=== PATIENT | male | born 1960 | race Caucasian/White ===

== ENCOUNTER → 2023-02-13 10:02 | Outpatient (BNVA) | payer BC, SELFPAY | PROVIDERS: PCP Internal Medicine; Visit Provider Psychiatry & Neurology Neurology ==

== ENCOUNTER 2023-03-13 12:45 | Outpatient (RCR) | payer BC, SELFPAY ==
--- NOTE | 2023-03-21 11:05 | MHC.SP.ADU ---
Referring provider: Dr. Tolbert Reason for Referral: Unspecified Dementia; Assess for Cognitive Therapy Type of Treatment: 96009 Standardized Cognitive Performance Testing, per hour Date of Plan of Treatment: 03/13/23 Onset of Symptoms/Illness: 07/11/21 Date Treatment Started: 03/13/23 Medical Diagnosis: Vascular Dementia (RE: Dr. Alejandra JACOB 07/11/21) Primary Speech Language Diagnosis: I69.911 Memory deficit Secondary Speech Language Diagnosis: R41.841 Cognitive communication disorder History Nico Perdomo is a 75 year old man who has been previously diagnosed with Vascular Dementia by his neuropsychologist, Dr. Kenzie Merritt. He is referred by his Neurologist, Dr. Tolbert for cognitive therapy. Per Mr. Perdomo's , Deidre, who accompanied Nico to this appointment, Dr. Tolbert specified a diagnosis of Alzheimer's Dementia, but Deidre is unclear why this is changed from his initial diagnosis of Vascular Dementia. Nico and Deidre report that he has struggled with memory and difficulty with complex tasks for at least three years now. Nico has worked for [employer] for his career and was formerly a assistant store manager trainee in [employer]. He decided to step down from that position due to difficulty he was having with many of the higher order tasks required, and concern about his safety during commuting to [place]. 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 Nico reports that he is managing working and this position without difficulties and that the work is fairly predictable and routine. However he reports he can have episodes where he becomes angry at co-workers if they are not working at an expected level, and he can get frustrated at times when he forgets a detail or draws a blank about a task he is trying to complete. Nico and his reports that he only drives during the day and only routine/well known routes, and he has not had an driving incidents. Deidre reported that Nico has always been very hard working and dedicated to his job and being a provider for his family. She reported that he has no hobbies but then reported that he has previously enjoyed preparing special foods (jams and seasonal meals) as well as being very handy around the house. She reports that these activities have become much harder for him and he is less engaged in his preferred activities. The Leanne's have two adult Daughters and they live in [place]. Medical History: High Blood Pressure Other: Gilbert's Syndrome, HLD. Anxiety, Depression Medication List: Recent Hospitalizations: No Respiratory Needs: Room Air Patient Orientation: Alert & Oriented x 4 Social History: Employment Status: [employer] Employ[employer] Highest level of education obtained: Completed Master's Current Living Situation: Lives with in private home in [place] Assistive Devices in use: Glasses/Contacts Comment: For reading Past Speech Language Therapy: None Reported Speech, Language, Cognition difficulties: Understanding Memory Cognition Comments: Areas of significant weakness with short term memory, working memory, delayed recall, visual processing and visual memory Quality of Life: Fair Patient Stated Goal of Speech-Language Therapy: Assess for Cognitive Therapy Assessment Speech Production: Articulate Clinical Impression: Intact Informal Voice Assessment: Voice Loudness: Normal Mildly Loud Voice Nasal Resonance: Voice Oral Resonance: Normal Voice Phonatory-based Quality: Normal Voice Pitch: Normal Clinical Impression: Intact Tests of Cognition: RBANS Clinical Impression: Impaired Observations: The Repeatable Battery for the Assessment of Neuropsychological Status (RBANS-Update Form A) was used to assess aspects of cognitive memory, language and attention skills. The RBANS is considered a screening battery for adult cognitive function, and is repeatable for the purpose of evaluating any changes in function. Composite domains assessed in this evaluation are: Immediate Memory; Visuospatial/Constructional; Language; Attention; and Delayed Memory. Domain index scores and percentile ranking are the following: Immediate Memory: Index Score: 49, %ile: <.1 Visuospatial/Constructional: Index Score: 50, %ile <.1 Language: Index Score: 87, %ile 20 Attention: Index Score: 40, %ile <.1 Delayed Memory: Index score 60, %ile: .4 TOTAL TEST: Index Score: 50, 5ile: <.1 Comment: Nico presents with a relative strength in his language skills, with good word recall and good semantic fluency noted. He presents with very significant weakness in the area of visual processing and visual memory, e.g. on this evaluation on a figure copying task, he produced a disorganized assemblage of shapes in lieu of the image depicted, was unable to perform a coding task and had extreme difficulty with visually processing other tasks. He had significant difficulty with immediate recall of verbal information, either in the form of a discreet list, a narrative or number sequences. As immediate recall was challenging, remote recall of details and information was also significantly impaired. Impressions and Recommendations Summary: Nico presents with a moderate to severe impairment of memory skills associated with immediate recall of information, visual processing and visual memory, and remote or delayed recall of information.? Nico will have great difficulty recalling new information, details, brief data presented auditorily.? This may be most evident when verbal directions are given, or phone numbers are recited for recall, or specific dates or other information is briefly given and not written down.? However, this level of difficulty with short term memory can additionally affect general comprehension in daily activities such as difficulty recalling details from conversations, repeating conversational information, and misplacing needed items.? This also may affect other leisure areas such as understanding an evolving plot while reading or watching complex narratives.? Nico's difficulty with delayed recall/memory will also generally affect new learning, making changes in routines, synthesizing new information or data, or acquiring new skills very difficult.? Nico's severe difficulty with processing visual information and visual memory issues may cause confusion when interpreting new visually presented information, visual disorganization, and difficulty recalling details or specific locations or interpreting visually presented data. Nico is demonstrating somewhat stronger language skills, with word recall and semantic skills in the low average range.? Nico is functionally able to express himself, but may have difficulties engaging in conversation due to his memory weaknesses, as well as difficulty processing non-verbal information and contexts. His language skills may at time mask the level of confusion he is coping with.? Nico does currently evidence insight into his difficulties, and that insight is unfortunately causing him a high degree of frustration at times.? Nico affirmed a tendency toward perfectionism. It is important for family members and others close to Nico to know that remembering and recalling information and details will be very challenging, and that learning new tasks, however mundane, may take more time, and will need structure and practice in order to complete them.? It may be at times hard to anticipate what he might have difficulty with or what she cannot remember.? It is recommended that Nico return for a trial period of cognitive therapy to instruct strategies for managing memory and processing needs. Impact on Daily Function/Activity Limitations: Daily Activities: Moderate Interpersonal Interactions: Moderate Education: Moderate Employment: Moderate Community: Moderate Prognosis for Improvement: Fair Comment: Progressive Dementia Recommendation for Speech Therapy: Outpatient Speech Therapy Frequency/Duration: One forty five minute cognitive therapy session weekly for a period for four to six weeks. Date Range for Service Requested: Time to Reassess: PRN Half-Way Goals: Nico will apply strategies, applications and accommodations to manage tasks that require immediate recall and processing in four out of five contexts. Short Term Goals: Goal # : Nico will use a rehearsal strategy to recall a detail or specific information from visual or verbal presented information with 80% accuracy Goal Status: Goal# : Nico will use a visualization strategy to recall a detail or specific information from verbally presented information with 80% accuracy. Goal Status: Goal # : Nico will use an association strategy to retain and retrieve specific information from visually or verbally presented information with 80% accuracy. Goal Status: Goal # : Nico will electively use an summer or tech device to record and retrieve needed information in four out of five contexts. Goal Status: Recommended Referrals to be Discussed with Primary Care Provider: Patient Education: Completed: Yes Patient/Caregiver Education: Described Results of Evaluation Patient expressed understanding of evaluation Comments/Barriers to Learning: Discussed as well the purpose of cognitive therapy is for strategies to manage needs v. recovery of skills. Dress Cutter Clinican/Clinical Fellow: No Supervisory Statement: N/A Speech Language Pathologist: Genny Ervin M.A., CCC-RESTAURANT FLOOR MANAGER
== END 2023-04-16 13:18 | disposition still patient (30) ==
LOC: HO.SH 12:45
PROVIDERS: Visit Provider Psychiatry & Neurology Neurology
DX: F03.90 Unspecified dementia, unspecified severity, without behavioral disturbance, psychotic disturbance, mood disturbance, and anxiety (principal)
CPT/HCPCS: 96125

== ENCOUNTER 2023-05-22 07:37 | Outpatient (AMB) | payer BC, SELFPAY ==
--- NOTE | 2023-05-22 07:42 | A.OFFVIS_ITS ---
Intake Vital Signs 05/22/23 07:45 Weight 149 lb 8 oz BP 138/86 Blood Pressure Location Rt brachial Position Sitting Pulse 57 Pulse Source Pulse Oximeter Pulse Oximetry (%) 100 Oxygen Delivery Method Room Air Intake Visit Reasons: follow up-confirmed Intake Note: F/U Demensia Tutoring Clinician Required: No Allergies prednisone Allergy (Unknown, Verified 05/22/23 07:43) Unknown Medication List - Last Reconciled 05/22/23 by Dixie Tolbert MD amlodipine 10 mg PO DAILY atorvastatin 20 mg PO DAILY bupropion HCl 300 mg PO DAILY memantine 21 mg PO DAILY HPI HPI Comments History of Present Illness Details 63y/o male with dementia comes for [facility] accompanied by his Deidre. His EEG showed left temporal slowing. No sharp activity. Speech and cognitive therapy is helping, About 3-4 years ago his started noticing memory issues. He had trouble remembering relatives, he could not fill out a form, had trouble tying his tie. DR. Mao did his initial evaluations including MRI and neuropsych evaluation . Dr. Roberts s evaluation was c/w dementia likely vascular. He was started on wellbutrin for depression which helped. He is independent in all ADLs.He frequently loses things, forgets conversations,he is unable to do any cream dipper .He has trouble with loading wrister , he has trouble using his power tools,. He used to be very handy but is unable to do anything related to building now. He gets confused with remote, microwave,stove etc. He use do bake a lot and make jams which he has trouble with now. He has frequent arousals - due to his dogs . 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 No known fh/o dementia No head injury No exposure to chemicals His father is 87 and doing well Mother in her 70s . He does not drive much and his manages his finances. [facility] Medical History Alzheimer's dementia Anxiety Dementia [place] syndrome Depression Hyperlipidemia HTN (hypertension) Surgical History Hx of wisdom tooth extraction H/O: vasectomy History of tonsillectomy History of hernia repair Family History Mother Cancer Father Anxiety Depression Cancer Social History Alcohol intake: current Alcohol intake frequency: holidays/special occasions only Alcohol type: beer Patient Tobacco Use Status: Never used Tobacco Review of Systems Neuro Reports confusion Psych Reports confusion Physical Exam Vital Signs: Last Vital Signs Pulse 57 05/22/23 07:45 BP 138/86 05/22/23 07:45 Pulse Ox 100 05/22/23 07:45 Oxygen Delivery Method Room Air 05/22/23 07:45 Const General: cooperative and confusion Nutritional Appearance: average body habitus Orientation/consciousness: oriented to person, oriented to place, oriented to time and confusion Limitations: no limitations Neuro General: oriented to person, oriented to place, oriented to time, tone normal, moves all extremities, no focal motor deficits and confusion Cognition (Neuro): abnormal cognition Gait exam (Neuro): Normal gait present Motor exam (neuro): 5/5 motor strength present throughout and Normal motor muscle tone present throughout Coordination: [id number] test normal, [id number] test normal and tandem gait normal Orientation What is the (year) (season) (date) (day) (month)?: year, season, date, day and month Where are we (state) ([facility]) (town or city) (hospital) (floor)?: state, town or city, hospital/clinic and floor Registration Name of 3 unrelated objects clearly and slowly, then ask patient to repeat all 3 of them. (1st repeat determines score. Make sure they can repeat all three): object 1, object 2 and object 3 Recall Ask patient to repeat the 3 items from question #3.: object 1 Language Show patient a wristwatch & ask what it is. Repeat for pencil.: watch and pencil Ask the patient to repeat the phrase 'No ifs, ands, or buts' after you.: correct Ask the patient to 'take a piece of paper with their right hand' 'fold paper in half' 'place paper on floor': take paper in right hand, fold paper in half and place paper on floor Print the sentence 'CLOSE YOUR EYES' on a piece. If patient actually closes eyes then score.: followed written direction Give patient a blank piece of paper & ask to write a sentence. Score if it contains a noun & verb.: sentence contains subject and verb Score Score: 21 Assessment & Plan Assessment & Plan (1) Dementia: Comment: likely alzheimers Code(s): F03.90 - Unspecified dementia, unspecified severity, without behavioral disturbance, psychotic disturbance, mood disturbance, and anxiety (2) Anxiety: Code(s): F41.9 - Anxiety disorder, unspecified Plan PET scan for a more detailed evaluation EEG - results discussed Lab reports form PCP Continue Cognitive therapy Will refer to [facility] for opinion. Increase namenda XR 21mg qd and then 28 mg qd Orders: Referrals Neurology Referral F02.80 - Dementia in other diseases classified elsewhere, unspecified severity, without behavioral disturbance, psychotic disturbance, mood disturbance, and anxiety, F03.90 - Unspecified dementia, unspecified severity, without behavioral disturbance, psychotic disturbance, mood disturbance, and anxiety, G30.9 - Alzheimer's disease, unspecified Medications: Changed From memantine 14 mg PO DAILY 30 ea 1RF To memantine 21 mg PO DAILY 30 ea 0RF Coding Level of Care Code Est Pt Level 4 (11066) Diagnoses Dementia F03.90 Anxiety F41.9
[2023-05-22 07:45] VITALS: BP 138/86; PULSE 57; O2SAT 100
== END 2023-05-22 08:29 | disposition home or self-care (01) ==
PROVIDERS: PCP Internal Medicine; Visit Provider Psychiatry & Neurology Neurology
DX: F03.90 Unspecified dementia, unspecified severity, without behavioral disturbance, psychotic disturbance, mood disturbance, and anxiety (principal); F41.9 Anxiety disorder, unspecified
CPT/HCPCS: 99214

== ENCOUNTER → 2023-05-22 07:37 | Outpatient (BNVA) | payer BC, SELFPAY | PROVIDERS: PCP Internal Medicine; Visit Provider Psychiatry & Neurology Neurology ==

== ENCOUNTER 2024-02-28 09:00 | Outpatient (RCR) | payer BC, SELFPAY ==
--- NOTE | 2023-05-21 16:18 | MHC.SL.SOA ---
Referring Provider: Dr. Tolbert Reason for Referral: Unspecified Dementia; Assess for Cognitive Therapy Date of Plan of Treatment:03/13/23 Onset of Symptoms/Illness:07/11/21 Date Treatment Started:03/13/23 Medical Diagnosis:Vascular Dementia (RE: Dr. Alejandra JACOB 07/11/21) Primary Speech Language Diagnosis:I69.911 Memory deficit Secondary Speech Language Diagnosis:R41.841 Cognitive communication disorder Reason for Visit:Non-billable Event Subjective:Nico was administered the CADL-3 to gain more information about his functional cognitive linguistic skills and to identify potential challenges Nico may encounter in his day-to-day communication demands. Nico completed the assessment over the course of 2 sessions. In an effort to reduce frustration, Nico was provided with as much assistance as needed to successfully complete the item. Note: he was only scored on his initial, independent response, permitting an appropriate comparison of his performance on the CADL-3 to that of same-aged peers. Objective: The Communication Activities of Daily Living?Third Edition (CADL-3) is a standardized assessment used to evaluate functional communication skills. It was originally developed to evaluate adults with aphasia but has also served as a valuable evaluation for tool for other populations, including individuals with Alzheimer?s disease (Oliva, Lois, Mau, Abel, & Tree, 2005). Though Nico?s diagnosis is vascular dementia, and not Alzheimer?s dementia, this is an appropriate assessment for him because these two types of dementia often have similar signs and symptoms. The CADL-3 examines functional communication skills across seven categories: Reading, Writing, or Using Numbers, Social Interactions, Contextual Communication, Nonverbal Communication, Sequential Relationships, Humor, Metaphor, and Absurdity, and Internet Basics. These areas are assessed through a series of questions, asked with visual stimuli, related to eating, shopping, driving, visiting the doctor, and using computers and phones. The CADL-3 uses a three-point scoring system (correct, adequate, incorrect) to reflect the wide range of what is deemed ?successful? communication in everyday life. Index scores are compared to those of a clinical sample of 115 adults with neurogenic language disorders of a variety of origins, including dementia. It is important to note that most of the clinical sample used to standardize the CADL-3 were stroke survivors, and the index scores are outbound telemarketing representative of the communication abilities of aphasic individuals, and thus should not be interpreted as a comparison with neurotypical adults. (Pauline Reid, Khushi, 2005) References: Sepideh Baptiste, Ravi Abreu, Ravi León, Beto Roman, & Ravi Leavitt (2005). Referential communication in Alzheimer?s type dementia. Cortex, 41(4), 520-534. Ravi Reid Fromm, D., & Sheyla Puri. Communication activities of daily living. (2018). Pro-Ed. Assessment:Nico received an index score of 98 on the CADL-3, scoring above 37% of other adults with neurogenic conditions (e.g. aphasia, dementia), indicating functional communication abilities within normal limits. This is a positive result, suggesting that Nico is, overall, capable of completing most tasks of daily living. Areas of strength include social interactions (e.g. greetings, appropriate questions), contextual communication (e.g. making list of groceries, asking for help in a store, making a call to report an emergency), and understanding humor, metaphor, and absurdity (e.g. jokes, idioms). Nico had difficulty completing tasks related to reading, writing, and using numbers (e.g. reading TV listing, filling out form for an appointment), sequential relationships (e.g. time concepts, making inferences), and internet basics (e.g. appropriately dialing a phone number, obtaining information from a webpage). These areas should be the focus of future cognitive-linguistic therapy sessions. Notes: New goals to be added to our treatment plan: STG 2.1: Given a written paragraph, Nico will answer yes/no and multiple choice questions with 80% accuracy and moderate assistance (3-4 verbal and/or visual cues). STG 2.2: Given a written worksheet, Nico will follow 2-step verbal or written instructions with 80% accuracy and minimal assistance (1-2 verbal and/or visual cues). STG2.3: Given a visual support (e.g. clock, calendar, agenda), Nico will respond to questions related to time concepts (e.g. How many hours until lunch? What date is your daughter's birthday?) with 80% accuracy and minimal assistance (1-2 verbal cues). Plan: Goal # : Nico will use a rehearsal strategy to recall a detail or specific information from visual or verbal presented information with 80% accuracy Status of Goal: Goal Continued Goal # : Nico will use a visualization strategy to recall a detail or specific information from verbally presented information with 80% accuracy. Status of Goal: Goal Continued Goal # : Nico will use an association strategy to retain and retrieve specific information from visually or verbally presented information with 80% accuracy. Status of Goal: Goal Continued Goal # : Nico will electively use an summer or tech device to record and retrieve needed information in four out of five contexts. Status of Goal: Goal Continued Seen by: Graduate/Clinical Fellow: Yes: Yelitza Phillips Supervisory Statement: f_Reg Query Last Value , MHC.AU.SIGNAT Speech Language Pathologist: Madeline Johnston M.A., CCC-MIXING PAN TENDER
--- NOTE | 2023-10-11 13:34 | MHC.SL.SOA ---
Referring Provider: Dr. Tolbert Reason for Referral: Unspecified Dementia; Assess for Cognitive Therapy Date of Plan of Treatment:09/18/23 Onset of Symptoms/Illness:07/11/21 Date Treatment Started:03/13/23 Medical Diagnosis:Alzheimer's dementia Primary Speech Language Diagnosis:I69.911 Memory deficit Secondary Speech Language Diagnosis:R41.841 Cognitive communication disorder Reason for Visit:39972 Individual Treatment Subjective: Nico Perdomo is a 63 year old man who was referred to Speech Pathology by his Neurologist, Dr. Dixie Alicea, for cognitive therapy. Mr. Perdomo was previously thought to have vascular dementia, however, Nico?s , Mrs. Deidre Perdomo, reports that after having a PET scan at [facility], Nico was given the formal diagnosis of Alzheimer?s dementia. Mr. Perdomo reports he has an upcoming appointment in December with a Neurologist at [facility] to discuss potential experimental treatments. Mr. 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 Nico reports that he is managing working and this position without difficulties and that the work is fairly predictable and routine. However he reports he can have episodes where he becomes angry at co-workers if they are not working at an expected level, and he can get frustrated at times when he forgets a detail or draws a blank about a task he is trying to complete. Deidre reported that Nico has always been very hard working and dedicated to his job and being a provider for his family. She reported that he has no hobbies but then reported that he has previously enjoyed preparing special foods (jams and seasonal meals) as well as being very handy around the house. She reports that these activities have become much harder for him and he is less engaged in his preferred activities. The Leanne's have two adult daughters and they live in [place]. Nico?s speech evaluation on 03/13/23 revealed moderate to severe impairment of memory skills associated with immediate recall of information, visual processing and visual memory, and delayed recall of information. Nico has attended speech therapy on a weekly basis since April 2023 with excellent attendance, motivation, and family support. He is accompanied to his sessions by his , Mrs. Deidre Perdomo. Nico continues to make slow but steady progress towards his goals, which is detailed below. Objective: 1.1. Nico will use a rehearsal strategy to recall a detail or specific information from visual or verbal presented information with 80% accuracy GOAL MET: Nico used the rehearsal strategy to recall lists of 3-4 numbers or words immediately after it is verbally presented to him with 90% accuracy. 1.3. Nico will use an association strategy to retain and retrieve specific information from visually or verbally presented information with 80% accuracy. IN PROGRESS: Nico used the chaining strategy to recall 4-word lists in 75% of opportunities when provided with maximal level assistance. STG 2.1: Given a written paragraph, Nico will answer yes/no and multiple choice questions with 80% accuracy and moderate assistance (3-4 verbal and/or visual cues). IN PROGRESS: Given a written paragraph PRESENTED VERBALLY, Nico answered yes/no and multiple choice questions with 60% accuracy and moderate assistance (3-4 verbal and/or visual cues). STG 2.2: Given a written worksheet PRESENTED VERBALLY, Nico will follow 2-step verbal or written instructions with 80% accuracy and minimal assistance (1-2 verbal and/or visual cues). IN PROGRESS: Given a written worksheet, Nico followed 2-step verbal instructions with 60% accuracy and moderate assistance (3-4 verbal/visual cues). STG 2.4: Nico will use a scanning strategy to complete visual processing tasks (finding specific letters and words) with 80% accuracy and minimal assistance (1-2 verbal/visual cues). IN PROGRESS: Nico used a scanning strategy to complete visual processing tasks with >80% accuracy and moderate assistance (isolation tool and visual/verbal cues as needed). Assessment: Nico completed testing on 09/11/23 to monitor the progress he has made in treatment thus far and to inform goals based on his current needs. He was administered the Cognitive Linguistic Quick Test (CLQT+). The CLQT+ is a criterion-referenced assessment used to gain information about an individual?s relative strengths and weaknesses and to identify deficits in cognitive-linguistic skills in individuals aged 18-89 years old. The CLQT+ generates severity ratings in the following five cognitive domains: Attention, Memory, Language, Executive Functions, and Visuospatial Skills. Nico?s performance on the CLQT+ is displayed below: Task: Criterion Cut Score, Patient?s Score, Interpretation Personal Facts: 8, 8, Within Functional Limits Symbol Cancellation: 11, 0, Below Cut Score/ Impaired Confrontational Namin, 10, Below Cut Score/ Impaired Clock Drawin, 5, Below Cut Score/ Impaired Story Retellin, 4, Below Cut Score/ Impaired Symbol Trails: 9, 2, Below Cut Score/ Impaired Generative Namin, 4, Below Cut Score/ Impaired Design Memory: 5, 2, Below Cut Score/ Impaired Mazes: 7, 0, Below Cut Score/ Impaired Design Generation: 6, 0, Below Cut Score/ Impaired Task scores were summed together based on cognitive domain. Cognitive Domain scores are as follows: Cognitive Domain: Domain Score, Severity Range, Severity Rating Attention: 18, Severe, 1 Memory: 104, Severe, 1 Executive Functions: 6, Severe, 1 Language: 25, Mild, 3 Visuospatial Skills: 12, Severe, 1 Nico?s Composite Severity Rating of 1.4 is interpreted as a borderline- severe cognitive linguistic impairment according to his performance on this assessment measure. Attention skills include the ability to maintain attention over time, selectively disengage from one task to engage in a new one, and the ability to simultaneously coordinate the demands of multiple tasks (Jose G, 2001). Nico was able to attend to simple, short tasks but exhibited more difficulty coordinating the demands of multiple tasks at once. Nico also demonstrated impairments in the areas of short term memory and executive functions. Memory is a complex process that includes the ability to attend to, process, retain, store, and retrieve information (Jose G, 2001). Nico correctly stated his name, his birthdate, and his age, demonstrating memory of personal facts. Nico recalled few details from a short story which was verbally presented to him. Though he exhibited difficulty recalling specific details on his own, he did correctly respond to yes/no questions about the content of the paragraph, suggesting that Nico was able to retain this information in order to answer questions, though it was more difficult for Nico to retrieve the information to re-tell a story. Nico exhibited difficulty completing tasks that required him to plan, sequence, and accomplish goal-directed activities. He was instructed to complete mazes and create designs, but as unable to complete these tasks despite additional instruction. Likewise, Nico also had trouble drawing a clock, a task which is traditionally performed as a general screening of cognition. Nico?s writing was legible and his written numbers were oriented correctly for reading. Numbers on the clock were arranged clockwise in a circular pattern, but were poorly spaced with some numbers placed outside of the beaver. Four numbers were missing from the clock. Nico included two hands on the clock, but they were of equal size, did not originate from the center, and did not tell the correct time. Nico demonstrated strengths in his language skills. During a confrontational naming task, Nico was able to name 9 out of 10 line drawings, exhibiting just one instance of paraphasia, naming a cow as a ?da silva.? Nico was also able to name up to 15 members per spoken category. Nico scored borderline to the severely impaired range on tasks based on his performance on the CLQT+. Notes: Nico presents with a moderate to severe cognitive linguistic impairment. Throughout his course in treatment, Nico demonstrated increased use of various memory strategies, including verbal rehearsal, requests for repetition, and creating associations, though he does still require some level of prompting in order to use these strategies. We were able to identify that scanning and use of isolation tools assisted Nico with reading and reviewing of images. Nico demonstrates relative strengths in his word retrieval and expository speech. Nico is recommended additional speech therapy visits with continued targets of immediate recall, delayed recall, and visuo-spatial skills. Selected goals are aimed at developing compensatory strategies and functional accommodations to support Nico?s independence in activities of daily living. Nico is recommended 12 weekly speech therapy visits targeting the following goals: Plan: Goal # : 1.1. Nico will use 1-2 memory strategies (e.g. verbal rehearsal, visualization, associations) to recall a detail or specific information from verbally presented information with 80% accuracy. 1.2. Nico will recall 4 out of 5 memory strategies when given intermittent moderate verbal and minimal written cues. 1.3. Nico will recall sentence-level information after a 30-minute delay using the spaced retrieval technique. Status of Goal: Revised Goal Goal # : 1.4. Nico will create a grocery list (5+ items) for a week of meals with 80% accuracy and minimal verbal prompting across 3 sessions. 1.5. Nico will recall 5+ items (i.e. grocery list, medication list, etc.) after a 30 minute delay given intermittent verbal cues in order to increase independence during functional memory tasks. Status of Goal: New Goal Goal # : 1.6. Nico will complete a daily journal given moderate verbal cues across 3 sessions. 1.7. Nico will recall to use a calendar to check daily appointments at first practice across 3 consecutive sessions. Status of Goal: New Goal Goal # : 1.8. Nico will electively use an summer or tech device to record and retrieve needed information in four out of five contexts. Status of Goal: Goal Continued Seen by: Graduate/Clinical Fellow: No Supervisory Statement: f_Reg Query Last Value , MHC.AU.SIGNAT Speech Language Pathologist: Madeline Johnston M.A., CCC-CONTROL ROOM AGENT
--- NOTE | 2024-03-03 17:09 | MHC.SL.SOA ---
Referring Provider: Dr. Tolbert Reason for Referral: Unspecified Dementia; Assess for Cognitive Therapy Date of Plan of Treatment:09/18/23 Onset of Symptoms/Illness:07/11/21 Date Treatment Started:03/13/23 Medical Diagnosis:Alzheimer's dementia Primary Speech Language Diagnosis:I69.911 Memory deficit Secondary Speech Language Diagnosis:R41.841 Cognitive communication disorder Reason for Visit:42696 Individual Treatment Subjective:Nico arrived on time for his last appointment today, accompanied by his , Deidre. Nico appeared to be in good spirits and kindly expressed gratitude for the help he had received in speech therapy. Objective: Today we discussed external memory strategies that Nico implements at home and at work. He was provided with a packet of handouts outlining these strategies. Assessment:As our course of therapy progressed, we no longer targeted exercises for training of internal memory strategies, as Nico and his found that Nico's progress in this area had plateaued. Instead, we focused on identifying areas of challenge in Nico's everyday life and developing compensatory strategies to support Nico's memory and independence. Encouragingly, Nico continues to work at [employer] and with the support of his , implements various strategies there. For example, Nico and his family take a photo of his work schedule that is posted there so that he has this visual at home as well. Furthermore, Nico breaks down his routine at work into smaller steps. He uses an application on his phone that buzzes in order to alert him to the next step in his work schedule. He has made various accommodations at home to support his independence in completing his ADL's. Nico and his strategically store his shoes, wallet, phone, and keys at the door so that he visually reminded to take these belongings with him when he leaves the house. They say this has been working well. Nico has reported having difficulty processing visual information (i.e. It becomes jumbled up ) and to combat this, Nico and his family place color coded stickers on text (i.e. on the microwave) so that he can still use appliances independently. Nico's appointments are logged on a large, weekly calendar, as he has expressed he becomes overwhelmed looking at a monthly calendar. Nico's medications are managed by his as they found that this is what works best for them. We have discussed journaling at the end of the day and Nico expressed he is willing to try this in the future. Nico has excellent support from his and they both demonstrated great insight to his needs. Notes: Nico and his , Deidre, have decided not to pursue reauthorization, as they are satisfied with the strategies they have developed to support Nico's independence and safety. Recommend Nico continue to follow with Neurology for his diagnosis of dementia. If any future concerns arise, Nico and his are encouraged to [facility], as a re-evaluation may be indicated. It has been an absolute pleasure working with and Mrs. Perdomo. Plan: Goal # : 1.1. Nico will use 1-2 memory strategies (e.g. verbal rehearsal, visualization, associations) to recall a detail or specific information from verbally presented information with 80% accuracy. 1.2. Nico will recall 4 out of 5 memory strategies when given intermittent moderate verbal and minimal written cues. 1.3. Nico will recall sentence-level information after a 30-minute delay using the spaced retrieval technique. Status of Goal: Discharge Goal Goal # : 1.4. Nico will create a grocery list (5+ items) for a week of meals with 80% accuracy and minimal verbal prompting across 3 sessions. 1.5. Nico will recall 5+ items (i.e. grocery list, medication list, etc.) after a 30 minute delay given intermittent verbal cues in order to increase independence during functional memory tasks. Status of Goal: Discharge Goal Goal # : 1.6. Nico will complete a daily journal given moderate verbal cues across 3 sessions. 1.7. Nico will recall to use a calendar to check daily appointments at first practice across 3 consecutive sessions. Status of Goal: Discharge Goal Goal # : 1.8. Nico will electively use an summer or tech device to record and retrieve needed information in four out of five contexts. Status of Goal: Discharge Goal Seen by: Graduate/Clinical Fellow: No Supervisory Statement: f_Reg Query Last Value , MHC.AU.SIGNATUR Speech Language Pathologist: Madeline Johnston M.A., CCC-INTERNET RETAILER
== END 2024-03-04 09:57 | disposition home or self-care (01) ==
LOC: HO.SH 09:00
PROVIDERS: PCP Internal Medicine; Visit Provider Internal Medicine
DX: I69.911 Memory deficit following unspecified cerebrovascular disease (principal)
CPT/HCPCS: 92507